=== PATIENT | female | born 1940 | race Caucasian/White ===

== ENCOUNTER 2022-02-17 10:06 | Outpatient (CLI) | payer MEDICARE | END 2022-02-17 10:07 | disposition home or self-care (01) | LOC: CSHRAD 10:06 | PROVIDERS: ATTEND Student in an Organized Health Care Education/Training Program | DX: R13.14 Dysphagia, pharyngoesophageal phase (principal); R63.30 Feeding difficulties, unspecified; J38.01 Paralysis of vocal cords and larynx, unilateral; R93.3 Abnormal findings on diagnostic imaging of other parts of digestive tract | CPT/HCPCS: 74230 ==